=== PATIENT | male | born 1945 | race Caucasian/White ===

== ENCOUNTER 2021-10-29 13:06 | Emergency (ER) | payer MEDICARE, OTHER ==
[~2021-10-29 13:06] MED LIST: IMDUR ER TAB 6060 MG PO; NOVOLOG MI100 UNIT/2 SC; PEPCID20 MG PO
[2021-10-29 14:49] LABS: HEMOGLOBIN 15.2 gm/dl (14.0-17.5); RED BLOOD COUNT 4.7 M/UL (4.20-5.50); WHITE BLOOD COUNT 10.2 K/UL (4.5-11.0)
[2021-10-29 15:31] LABS: ADENOVIRUS F 40/41 Not Detected (Negative); ASTROVIRUS Not Detected (Negative); CAMPYLOBACTER Not Detected (Negative); CRYPTOSPORIDIUM Not Detected (Negative); E.COLI 0157 Not Detected (Negative); ENTAMOEBA HISTOLYTICA Not Detected (Negative); ENTEROAGGREGATIVE E.COLI (EAEC Not Detected (Negative); ENTEROPATHOGENIC E.COLI (EPEC) Not Detected (Negative); ENTEROTOXIGENIC E.COLI (ETEC) Not Detected (Negative); GIARDIA LAMBLIA Not Detected (Negative); NOROVIRUS GI/GII Not Detected (Negative); PLESIOMONAS SHIGELLOIDES Not Detected (Negative); ROTOVIRUS A Not Detected (Negative); SALMONELLA Not Detected (Negative); SAPOVIRUS Not Detected (Negative); SHIG/ENTEROINVAS.ECOLI (EIEC) Not Detected (Negative); SHIGA-LIK TOX.PRO.E.COLI (STEC Not Detected (Negative); VIBRIO Not Detected (Negative); VIBRIO CHOLERAE Not Detected (Negative); YERSINIA ENTEROCOLITICA Not Detected (Negative)
[2021-10-29 17:24] LABS: CLOSTRIDIUM DIFFICILE TOX A/B Not Detected (Negative)
[2021-10-29] MEDS ORDERED: MAGNESIUM400 MG PO ×2 (17:51→19:20)
== END 2021-10-29 19:25 | disposition home or self-care (01) ==
LOC: ER1 13:06
PROVIDERS: Preventive Medicine Occupational Medicine
DX: R19.7 Diarrhea, unspecified (principal); E83.42 Hypomagnesemia; Z20.822 Contact with and (suspected) exposure to COVID-19; I25.10 Atherosclerotic heart disease of native coronary artery without angina pectoris; Z95.1 Presence of aortocoronary bypass graft; Z95.0 Presence of cardiac pacemaker; Z95.5 Presence of coronary angioplasty implant and graft; Z90.49 Acquired absence of other specified parts of digestive tract; Z90.89 Acquired absence of other organs; Z88.8 Allergy status to other drugs, medicaments and biological substances; Z91.041 Radiographic dye allergy status
CPT/HCPCS: 0240U; 80053; 81001; 83735; 85025; 85652; 86140; 87086; 87507; 93005; 96374; 96375; 99284; C9113; J2405